=== PATIENT | male | born 1955 | race Caucasian/White ===

== ENCOUNTER 2019-09-15 10:18 | Inpatient (IN) ==
[2019-09-15] MEDS ORDERED: TORADOL IV ONE (10:40)
[2019-09-15] MEDS ORDERED: DECADRON IV ONE (10:40)
[2019-09-15] MEDS ORDERED: NS 500 ML IV ONE (10:40)
--- NOTE | 2019-09-15 11:31 | Diag Imaging Result Doc PS360 ---
CHEST-PORTABLE - 09/15/2019 INDICATION: altered mental status COMPARISON: None FINDINGS: Lung volumes are relatively low. No infiltrates or edema. Heart size is top normal. No pneumothorax or pleural effusion. IMPRESSION: Low lung volumes but no acute disease. Electronically signed by Tonny Fountain 09/15/2019 11:29 AM
--- NOTE | 2019-09-15 11:37 | Diag Imaging Result Doc PS360 ---
EXAM: CT HEAD W/O CONTRAST HISTORY: altered mental status TECHNIQUE: CT head without contrast COMPARISON: None. FINDINGS: No parenchymal hemorrhage. No epidural or subdural hematoma. No subarachnoid hemorrhage. There is a hypodense area in the left occipital lobe extending into the posterior temporal lobe. No mass identified on this noncontrasted exam. No hydrocephalus. No sinus opacification. IMPRESSION: Recent left-sided infarct. This report was discussed with Chandrakant the charge nurse in the [facility] emergency room on 09/15/2019 at 11:35 AM and was readback. This exam was performed using automated exposure control, adjustment of mA or kV according to patient size, and/or use of iterative reconstruction technique. Electronically signed by Nick Manuel 09/15/2019 11:35 AM
[2019-09-15 11:52] LABS: INFLUENZA A NEGATIVE (NEGATIVE); INFLUENZA B NEGATIVE (NEGATIVE)
[2019-09-15 11:52] LABS: BASO# 0.01 X1000 (0.0-0.2); BASO% 0.1 % (0.0-0.8); EOS# 0.01 X1000 (0.0-0.7); EOS% 0.1 % (0.0-10.0); HEMATOCRIT 42.3 % (42.0-52.0); HEMOGLOBIN 14.4 g/dL (14.0-18.0); IMM GRAN# 0.02 X1000 (0.0-0.04); IMM GRAN% 0.2 % (0.0-0.5); LYMPH# 0.82 X1000 (1.2-3.4); LYMPH% 9.6 % (20.5-51.1); MCV 88.1 FL (81-99); MONO# 0.47 X1000 (0.11-0.59); MONO% 5.5 % (1.7-9.3); MPV 9.7 FL (7.4-10.4); NEUT# 7.19 X1000 (1.4-6.5); NEUT% 84.5 % (42.2-75.2); PLT 201 X1000 (130-400); WBC 8.52 X1000 (4.8-10.8)
[2019-09-15] MEDS ORDERED: PRINIVIL PO ONE (11:52)
[2019-09-15] MEDS ORDERED: PRINIVIL ONE (12:05)
--- NOTE | 2019-09-15 12:18 | PROVIDER DOCUMENTATION ---
This chart was entered by Francesca Ramos Scribbre, acting as scribe for Belinda Byers MD. HPI-Neurological Disorder - General Chief Complaint: Altered Mental Status Stated Complaint: CONFUSED / HEADACHE Time Seen by Provider: 09/15/19 10:31 Source: patient, family () Allergies/Adverse Reactions: Patient Allergies Allergy/AdvReac Type Severity Reaction Status Date / Time No Known Allergies Allergy Verified 09/15/19 11:48 Home Medications: Home Medication List Medication Instructions Recorded Confirmed Last Taken Type Levothyroxine [Synthroid] 1 tab PO DAILY 09/15/19 09/15/19 09/14/19 History Lisinopril 1 tab PO DAILY 09/15/19 09/15/19 09/14/19 History Metformin [Glucophage] 2 tab PO BID 09/15/19 09/15/19 09/14/19 History - History of Present Illness-Neuro Nature of Presenting Problem: Pt is a 64 yowm brought into the ED by his with c/o of confusion, headache and "weird feeling" that comes and goes. Pt's states that pt woke up just not feeling right but denies head injury, chest pain and SOB. Pt has a hx of diabetes, HTN and does not have his thyroid. Pt is alert and nontoxic in appearance. Headache Location: reports: global Severity: reports: mild Onset/Duration: reports: abrupt, this morning Timing: reports: still present, intermittent Context: denies: head injury, fever, impaired speech, facial droop, falling, seizure activity Character of Altered Mental Status: reports: confused, decreased responsiveness Any recent trauma/injury?: reports: none Gait Baseline: walks without assistance Associated Symptoms: reports: headache, confusion. denies: short of breath, dizziness, chest pain, fever/chills, loss of consciousness, nausea, slurred speech, vomiting, vision changes, weakness Similar Symptoms Previously?: No Recently seen or treated by another doctor?: No Review of Systems - Adult - REVIEW OF SYSTEMS - ADULT Constitutional: denies: chills, fever Eyes: reports: no symptoms reported Ears, Nose, Mouth & Throat: reports: no symptoms reported Cardiovascular: denies: chest pain, syncope Respiratory: denies: cough, shortness of breath Gastrointestinal: denies: abdominal pain, diarrhea, nausea, vomiting Genitourinary: reports: no symptoms reported Musculoskeletal: reports: no symptoms reported Integumentary: reports: no symptoms reported Neurological: reports: see HPI, headache/migraines, other (confusion) Psychiatric: reports: no symptoms reported Endocrine: reports: no symptoms reported Hematologic/Lymphatic: reports: no symptoms reported Allergic/Immunologic: reports: no symptoms reported All Other Systems: Reviewed and Negative Past History - Adult - PAST MEDICAL HISTORY-ADULT Review of Records: reports: Old Records Reviewed, Nursing Assessment Review, Medications Reviewed, Social history reviewed & non-contributory. Major Childhood Illnesses: reports: denies history Cardiovascular: reports: HTN Respiratory: reports: denies history Gastrointestinal: reports: denies history Genitourinary: reports: denies history Musculoskeletal: reports: denies history Neurological: reports: denies history Endocrine/Immune: reports: Diabetes, thyroid disorder (pt does not have a thyroid) Other Conditions: reports: denies history - IMMUNIZATION STATUS Childhood Immunizations: See Nurse Assessment Flu Vaccine: See Nurse Assessment - FAMILY HISTORY Family History: reviewed, not pertinent - SOCIAL HISTORY Smoking: non-smoker Substance Use: denies Living Situation: family () Physical Exam- Neurological - Physical Exam-Neuro Initial Vital Signs Reviewed: Yes General Appearance: appears well, alert, no apparent distress Eye Exam: bilateral eye: normal inspection, PERRL, EOMI HENMT: normocephalic/atraumatic, moist mucous membranes, normal ENT inspection, TMs normal, pharynx normal Head Injury: no evidence of injury Neck: non-tender, full range of motion, supple, normal inspection Respiratory: chest non-tender, lungs clear, normal breath sounds, no pleuratic chest pain, no respiratory distress, no accessory muscle use Cardiovascular: normal peripheral pulses, regular rate, rhythm, no edema, no gallop, no JVD, no murmur Abdominal Exam: normal bowel sounds, non tender, soft, no organomegaly, no pulsatile mass Lymphatic: no adenopathy Extremity: normal range of motion, non-tender, normal gait, normal inspection, no pedal edema, no calf tenderness 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 Exam: normal hearing, normal speech, PERRL Coordination/Gait: normal gait Motor/Sensory: no motor deficit, no sensory deficit, no pronator drift Integumentary: normal color, normal turgor, warm/dry Psych/Mental Status: normal thought content, normal thought process, oriented x 3, depressed affect - Glascow Coma Scale Best Eye Response: (4) open spontaneously Best Verbal Response: (5) oriented Best Motor Response: (6) obeys commands Total Glascow Score: 15 Progress - PLAN OF CARE/RESULTS Progress/Plan/Lab Results: Vital Signs - 8 hr 09/15/19 10:26 09/15/19 12:12 Temperature 97.9 F Pulse Rate 77 73 Respiratory Rate 18 14 Blood Pressure 208/102 199/89 O2 Sat by Pulse Oximetry 96 98 Laboratory Results - last 24 hr 09/15/19 09/15/19 11:05 11:40 WBC 8.52 RBC 4.80 Hgb 14.4 Hct 42.3 MCV 88.1 MCH 30.0 MCHC 34.0 RDW Std Deviation 13.0 Plt Count 201 MPV 9.7 Immature Gran % (Auto) 0.2 Neut % (Auto) 84.5 H Lymph % (Auto) 9.6 L Dougherty % (Auto) 5.5 Eos % (Auto) 0.1 Baso % (Auto) 0.1 Immature Gran # (Auto) 0.02 Neut # (Auto) 7.19 H Lymph # (Auto) 0.82 L Dougherty # (Auto) 0.47 Eos # (Auto) 0.01 Baso # (Auto) 0.01 Influenza A (Rapid) NEGATIVE Influenza B (Rapid) NEGATIVE Orders Category Date Time Status Saline Loc NOW Care 09/15/19 10:39 Active CHEST-PORTABLE [RAD] Stat Exams 09/15/19 10:[address] HEAD W/O CONTRAST [CT] Stat Exams 09/15/19 10:38 Completed CBC WITH DIFF [HEME] Stat Lab 09/15/19 11:40 Completed COMPREHENSIVE METABOLIC PANEL [CHEM] Stat Lab 09/15/19 11:[address] Stat Lab 09/15/19 11:05 Completed URINALYSIS [URINALYSIS] Stat Lab 09/15/19 10:39 Uncollected 0.9% Sodium Chloride Inj [Ns] 500 ml Med 09/15/19 10:40 Discontinued IV 999 mls/hr Dexamethasone [Decadron] Med 09/15/19 10:40 Discontinued 10 mg IV NOW ONE Ketorolac [Toradol] Med 09/15/19 10:40 Discontinued 30 mg IV NOW ONE LISINOpril [Prinivil] Med 09/15/19 11:52 Discontinued 5 mg PO NOW ONE LISINOpril [Prinivil] Med 09/15/19 12:05 Discontinued 50 mg .ROUTE .STK-MED ONE EKG [EKG] Stat Ther 09/15/19 10:31 Ordered Result Diagrams: 09/15/19 11:40 - EKG 1 Time of EKG reading by physician:: 10:33 EKG Read and Signed by:: Belinda Byers EKG Interpretation (*Must complete 3 of following elements*): Abnormal (Poor data quality, interpretation may be adversely affected) Rate: 76 Rhythm: NSR [place]: normal Comments: T wave abnormalityl, consider lateral ischemia - XRAY 1 XRAY Study: Chest Impression: See EMR Report (CHEST-PORTABLE - 09/15/2019 INDICATION: altered mental status COMPARISON: None FINDINGS: Lung volumes are relatively low. No infiltrates or edema. Heart size is top normal. No pneumothorax or pleural effusion. IMPRESSION: Low lung volumes but no acute disease. Electronically signed by Tonny Fountain 09/15/2019 11:29 AM 09/15/19 1129 Interpreting Physician: Tonny Fountain MD Dictated Date/Time: 09/15/19 1128 cc: Belinda Byers MD; Homer Yuan) - CT/MRI 1 CT Study: Head Impression: See EMR Report (EXAM: CT HEAD W/O CONTRAST HISTORY: altered mental status TECHNIQUE: CT head without contrast COMPARISON: None. FINDINGS: No parenchymal hemorrhage. No epidural or subdural hematoma. No subarachnoid hemorrhage. There is a hypodense area in the left occipital lobe extending into the posterior temporal lobe. No mass identified on this noncontrasted exam. No hydrocephalus. No sinus opacification. IMPRESSION: Recent left-sided infarct. This report was discussed with Chandrakant the charge nurse in the [facility] emergency room on 09/15/2019 at 11:35 AM and was readback. This exam was performed using automated exposure control, adjustment of mA or kV according to patient size, and/or use of iterative reconstruction technique. Electronically signed by Nick Manuel 09/15/2019 11:35 AM 09/15/19 1135 Interpreting Physician: Nick Manuel MD Dictated Date/Time: 09/15/19 1132) - CONSULTS/PCP/HOSPITALIST Notification #1 *Consult/PCP/Hospitalist*: Dr Finnegan Time Discussed: 12:19 Consult Disposition: Will see in ED, Admit Departure - Departure Date of Disposition Decision: 09/15/19 Time of Disposition Decision: 12:14 DIAGNOSIS: CVA (cerebral vascular accident) Qualifiers: CVA mechanism: unspecified Qualified Code(s): I63.9 - Cerebral infarction, unsp ecified Disposition: ADMITTED INPATIENT 09 Certified Medical Emergency: Emergent Condition: Good Referrals and Follow-Ups: Homer Yuan [Primary Care Provider] - - Critical Care Note This patient required my direct & personal management of CC.: No Attestation - Physician/ LILLIE Attestation Patient care was provided by Advanced Practice Provider:: No The physician spent face to face time with patient:: Yes Advanced Practice Provider documentation review:: Supervising physician onsite and consulted in the evaluation and care of this patient. The physician did have a face to face encounter with the patient. - NIH Stroke Scale Level of Consciousness: 0-Alert LOC Questions (ask month and age): 0-Answers Both Correctly Best Gaze (horizontal eye movement): 0-Normal Visual (use finger movement, counting or visual threat): 0-No Visual Loss Facial Palsy (show teeth or raise eyebrows & close eyes tght: 0-Symmetrical Movement Motor Function-left arm: 0-Normal Motor Function-right arm: 0-Normal Motor Function-left le-Normal Motor Function-right le-Normal Limb Ataxia(itcltu-ioqg-splobc, or heel to barnes): 0-No Ataxia Sensory(pin prick to face,arms,trunk,legs-compare side/side): 0-No Ataxia Best Language(name item/read sentence.Ex-Down to Earth): 0-No Aphasia Dysarthria(Pt read words or say words Ex.Mama,Tip-Top,Thanks: 0-Normal Articulation This chart was documented by the indicated scribe, (Francesca Ramos, Andra) and accurately reflects the services I performed and decisions made by me, Belinda Byers MD, as attested by the provider's signature.
[2019-09-15 12:30] LABS: ALBUMIN 4.4 g/dL (3.5-5.0); CALCIUM 8.4 mg/dL (8.8-10.2); CREATININE 1.8 mg/dL (0.7-1.2); POTASSIUM 4.4 mmol/L (3.5-5.1); TOTAL BILIRUBIN 0.6 mg/dL (0.20-1.00)
--- NOTE | 2019-09-15 12:40 | EKG Report ---
Test Performed on : 09/15/2019 10:33:54 AM Test Reason : altered mental status Blood Pressure : / mmHG Vent. Rate : 076 BPM Atrial Rate : 076 BPM P-R Int : 164 ms QRS Dur : 098 ms QT Int : 404 ms P-R-T Axes : 019 -20 115 degrees QTc Int : 454 ms Poor data quality, interpretation may be adversely affected Normal sinus rhythm. T wave abnormality, consider lateral ischemia Abnormal ECG No previous ECGs available Unconfirmed Result
[2019-09-15 13:29] LABS: URINE SOURCE CLEAN CATCH
[2019-09-15 13:32] LABS: BILIRUBIN URINE NEGATIVE (NEGATIVE); BLOOD URINE NEGATIVE (NEGATIVE); COLOR YELLOW; GLUCOSE URINE 200 mg/dL (NEGATIVE); KETONE URINE TRACE mg/dL (NEGATIVE); LEUKOCYTES URINE NEGATIVE (NEGATIVE); NITRITE URINE NEGATIVE (NEGATIVE); PROTEIN URINE 30 mg/dL (NEGATIVE); SP GRAVITY URINE 1.016; TURBIDITY URINE CLEAR (CLEAR); UROBILINOGEN URINE NORMAL (NORMAL)
[2019-09-15] MEDS: SYNTHROID PO SCH (13:33)
[2019-09-15 13:34] LABS: UR EPITHELIAL CELLS <10 /HPF (<10); URINE BACTERIA NEGATIVE /HPF; URINE RBC <10 /HPF (<10); URINE WBC <10 /HPF (<10)
[2019-09-15] MEDS ORDERED: GLUCOPHAGE PO SCH (17:00)
--- NOTE | 2019-09-15 17:11 | Vascular Study Report ---
EXAM: Carotid Ultrasound INDICATION: cva TECHNIQUE: COMPARISON: None. FINDINGS: Right: There is no significant atherosclerotic disease involving the right carotid system on grayscale images. The peak systolic velocity measures 224, 26, 78, 80, 46, 53, and 72 cm/s at the right subclavian artery, CCA, bifurcation, proximal ICA, mid ICA, distal ICA, and ECA, respectively. There is antegrade flow in the vertebral artery. The carotid ratio is 0.63. Left: There is mild intimal thickening involving the proximal CCA. There is a small amount of smooth atherosclerotic plaque at the carotid bulb. The peak systolic velocity measures 106, 115, 84, 58, 47, 58, and 57 cm/s at the left subclavian artery, CCA, bifurcation, proximal ICA, mid ICA, distal ICA, and ECA, respectively. There is antegrade flow in the vertebral artery. The carotid ratio is 0.51. IMPRESSION: Mild atherosclerotic disease on the left. No evidence of hemodynamically significant carotid stenosis by Doppler. Electronically signed by Bartolo Giordano 09/15/2019 5:09 PM
--- NOTE | 2019-09-15 18:02 | ECHO REPORT ---
ORDER DATE: 09/15/2019 INTERPRETING PHYSICIAN: Dr. Joe Seals. ECHOCARDIOGRAPHIC MEASUREMENTS: 1. Interventricular septum: 1.2 cm. 2. Left ventricular posterior wall: 1.4 cm. 3. Diastolic diameter: 5.2 cm. 4. Left atrium: 4.6 cm. 5. Aorta: 3.9 cm. SUMMARY OF THE 2-DIMENSIONAL IMAGIN. Aortic valve leaflets were trileaflet. 2. Pulmonic valve was normal. 3. Mitral valve was normal. 4. Tricuspid valve was normal. 5. Endocardium not well visualized in all views. 6. Peak velocity across the aortic valve less than 2 meters per second. 7. There is no aortic stenosis or regurgitation. 8. Left atrium was enlarged. 9. Optison was used to assess left ventricular systolic function. 10. Normal left ventricular cavity size. 11. Concentric left ventricular hypertrophy. 12. Estimated ejection fraction of 60%. 13. There is grade 2 diastolic dysfunction. 14. There is no pericardial effusion or obvious intracardiac mass or thrombus seen. 15. Technically suboptimal study. cc: MD Iker Bhakta MD
[2019-09-15] MEDS: APRESOLINE IV PRN (18:49)
[2019-09-15] MEDS ORDERED: ATIVAN IV PRN (19:42)
[2019-09-15] MEDS: HUMALOG (PARKWAY) SUBQ SCH (21:36)
[2019-09-16] MEDS: APRESOLINE IV PRN (00:08)
[2019-09-16] MEDS: SYNTHROID PO SCH (06:24)
--- NOTE | 2019-09-16 06:30 | HISTORY AND PHYSICAL ---
CHIEF COMPLAINT: Altered mental status. HISTORY OF PRESENT ILLNESS: The patient is a 64-year-old male who presented to the emergency department with his complaining of him having confusion. Notes that he has been having headache, a weird feeling. He has been disoriented. states that he woke up and was not feeling well. Has not had any head injury. Denies chest pain, shortness of breath. ALLERGIES: No known drug allergies. MEDICATIONS: Synthroid, lisinopril, metformin. PAST MEDICAL HISTORY: Diabetes, hypertension and hypothyroidism. PAST SURGICAL HISTORY: Thyroid surgery. REVIEW OF SYSTEMS: As noted above. His denies any knowledge of fevers, chills, cough, congestion. Denies any knowledge of dysuria frequency. He has had no focal changes other than his memory. Review of systems as per the as Mr. Goode is easily confused. FAMILY HISTORY: Noncontributory. SOCIAL HISTORY: Does not smoke, drink or use illicit substances. PHYSICAL EXAMINATION: VITAL SIGNS: Temperature 97 degrees, pulse 77, respiratory rate 18, blood pressure initially 202/102. HEENT: Normocephalic. NECK: Supple. CARDIOVASCULAR: Regular rate. CHEST: Clear, nonlabored. ABDOMEN: Soft, nondistended. EXTREMITIES: Moves all extremities. NEUROLOGIC: The patient is awake, alert. He is oriented, has normal thought processes, but is unable have long-term recall. His constantly notes that what he is saying is inaccurate. LABORATORY DATA: Reviewed. ASSESSMENT: 1. Acute cerebrovascular accident given memory loss versus acute amnesia. 2. Malignant hypertension. 3. Diabetes. 4. Hypothyroidism. PLAN: We are going to place the patient in the hospital, rule out a stroke. Check carotids, MRIs. Control his blood pressure. Follow his blood sugars. Further orders as needed. cc: Iker Finnegan MD
[2019-09-16] MEDS: HUMALOG (PARKWAY) SUBQ SCH ×4 (06:42→21:57)
[2019-09-16 07:04] LABS: HEMOGLOBIN A1C 7.4 % (4.8-6.0)
[2019-09-16 07:05] LABS: CALCIUM 8.3 mg/dL (8.8-10.2); CREATININE 1.8 mg/dL (0.7-1.2); MAGNESIUM 1.8 mg/dL (1.5-2.7); TOTAL BILIRUBIN 0.5 mg/dL (0.20-1.00); TOTAL PROTEIN 6.5 g/dL (6.3-8.3)
[2019-09-16 07:13] LABS: HEMATOCRIT 40.2 % (42.0-52.0); HEMOGLOBIN 13.7 g/dL (14.0-18.0); MCH 29.7 PG (27-31); MCHC 34.1 g/dL (33-37); MPV 10.1 FL (7.4-10.4); RBC 4.62 XMIL (4.7-6.1); RDW 12.9 % (11.5-14.5); WBC 10.62 X1000 (4.8-10.8)
[2019-09-16] MEDS ORDERED: ZOFRAN IV PRN (08:17)
[2019-09-16] MEDS ORDERED: TYLENOL PO PRN (08:17)
--- NOTE | 2019-09-16 08:24 | EKG Report ---
Test Performed on : 09/16/2019 04:50:07 AM Test Reason : Tachycardia Blood Pressure : / mmHG Vent. Rate : 084 BPM Atrial Rate : 084 BPM P-R Int : 170 ms QRS Dur : 100 ms QT Int : 402 ms P-R-T Axes : 034 -06 139 degrees QTc Int : 475 ms Normal sinus rhythm. T wave abnormality, consider lateral ischemia Prolonged QT Abnormal ECG When compared with ECG of 15-SEP-2019 10:33, (Unconfirmed) No significant change was found Unconfirmed Result
[2019-09-16] MEDS: JANUVIA PO SCH (08:34)
[2019-09-16] MEDS ORDERED: PRINIVIL PO SCH ×2 (09:00)
--- NOTE | 2019-09-16 12:09 | Diag Imaging Result Doc PS360 ---
EXAM: MRI BRAIN W/WO CONTRAST - 09/16/2019 HISTORY: memory loss, acutely TECHNIQUE: MRI brain without and with contrast. Images are obtained prior to and following gadolinium administration. COMPARISON: 09/15/2019 CT head without contrast FINDINGS: There is restricted diffusion which extends from the occipital lobe to the nearby posterior medial temporal lobe on the left. This corresponds with a low-density area which is seen on the recent CT head and is compatible with acute infarct. There is restricted diffusion the nearby left thalamus which also is consistent with acute infarct. There is no evidence of intracranial hemorrhage, mass effect, midline shift, or hydrocephalus. There is no abnormal enhancement identified. There is mucosal thickening noted at the bilateral maxillary sinuses. IMPRESSION: Acute infarct involving the occipital lobe, posterior medial temporal lobe, and thalamus on the left. Electronically signed by Derrick Baker 09/16/2019 12:07 PM
[2019-09-16] MEDS ORDERED: NS 1,000 ML IV SCH (21:00)
[2019-09-16] MEDS: DECADRON IV SCH (21:03)
--- NOTE | 2019-09-16 21:38 | PROGRESS NOTE ---
DATE: 09/16/2019 SUBJECTIVE: Patient notes he has a mild headache. He has occasional blurry vision. Denies any fevers, chills. Memory really has not improved. OBJECTIVE: Vital signs: Temperature 98 degrees, pulse 80, BP is better at 154/84 than his admission at 207/62. General: Patient is pleasant. He is in no distress. HEENT: Normocephalic. Neck: Supple. Cardiovascular: Regular rate. Chest: Clear. Abdomen: Soft. Extremities: Moves all extremities. ASSESSMENT: 1. Diabetes with poor home control an A1c of 7.4. We have added Januvia. We will stop his metformin due to his creatinine. 2. Acute renal failure. Creatinine is 1.8. We are going to try a fluid bolus to see if this helps. 3. Diabetes. 4. Hypothyroidism. 5. Acute cerebrovascular accident. We are going to try dexamethasone short course to see if this will help some of the edema and hopefully his vision change. cc: Iker Finnegan MD
[2019-09-17 05:57] VITALS: BP 160/73
[2019-09-17] MEDS: SYNTHROID PO SCH (06:05)
[2019-09-17] MEDS: HUMALOG (PARKWAY) SUBQ SCH ×2 (06:06→11:52)
[2019-09-17 06:15] LABS: HEMATOCRIT 41.1 % (42.0-52.0); HEMOGLOBIN 13.8 g/dL (14.0-18.0); MCH 29.7 PG (27-31); MCHC 33.6 g/dL (33-37); MCV 88.4 FL (81-99); MPV 9.9 FL (7.4-10.4); RBC 4.65 XMIL (4.7-6.1); RDW 13.2 % (11.5-14.5); WBC 9.78 X1000 (4.8-10.8)
[2019-09-17 06:17] LABS: AGAP 14; ALBUMIN 4.1 g/dL (3.5-5.0); ALKALINE PHOSPHATASE 69 U/L (32-122); BUN 31 mg/dL (8-22); CALCIUM 8.1 mg/dL (8.8-10.2); CHLORIDE 104 mmol/L (98-107); CHOLESTEROL 212 mg/dL (0-200); COSMO 288; CREATININE 1.8 mg/dL (0.7-1.2); ESTIMATED GFR 38; GLUCOSE 235 mg/dL (70-104); GOT 12 U/L (10-34); GPT 9 U/L (10-44); HDL 45 mg/dL (35-55); LDL 147 mg/dL; MAGNESIUM 1.9 mg/dL (1.5-2.7); POTASSIUM 4.3 mmol/L (3.5-5.1); SODIUM 137 mmol/L (136-145); TCO2 19 mmol/L (25-35); TOTAL PROTEIN 6.8 g/dL (6.3-8.3); TRIGLYCERIDES 102 mg/dL (39-160); VLDL 20 mg/dL
[2019-09-17] MEDS: JANUVIA PO SCH (08:31)
[2019-09-17] MEDS ORDERED: PRINIVIL PO SCH (09:00)
[2019-09-17] MEDS: DECADRON IV SCH (09:13)
--- NOTE | 2019-09-17 13:26 | DISCHARGE SUMMARY ---
ADMISSION DATE: 09/15/2019 DISCHARGE DATE: 09/17/2019 PRIMARY PROCEDURES: 1. Head CT. Recent left-sided infarct. 2. Chest x-ray, low lung volumes, but no acute disease. 3. Carotid Dopplers mild atherosclerotic disease on the left. No evidence of hemodynamically significant carotid Dopplers. 4. EKG, normal sinus rhythm, T-wave abnormality, prolonged QT 84 beats per minute. 5. Brain MRI, acute infarct involving the occipital lobe, posterior, medial temporal lobe and the thalamus on the left. DISCHARGE DIAGNOSES: 1. Acute infarct involving the occipital, posterior, medial temporal lobes and thalamus on the left. His main complaint was some confusion and memory loss. Really no physical deficits. He had a mild headache and some blurry vision for which he was given a dose of steroids. 2. Initially thought from acute renal failure. However, after IV fluids and boluses, he has had no recovery in his kidney function at 1.8, so apparently chronic kidney disease. 3. Uncontrolled diabetes mellitus with poor home control. Hemoglobin A1c of 7.4. Januvia was added. His metformin was stopped secondary to his creatinine. 4. Hypothyroidism. Continue Synthroid. 5. Initial malignant hypertension, improved. HOSPITAL COURSE: Briefly, Mr. Goode was a 64-year-old male gentleman who presented to the ED with his complaining of confusion, headache, feeling weird, disoriented and some blurry vision. stated that he woke up, was not feeling well. Denies any head injury. Workup revealed an acute infarct involving the occipital lobe, posterior medial temporal lobe and thalamus on the left. He has no physical deficits only memory. Dr. Finnegan and [facility] have talked to the patient and his about rehab or [facility] consult. However, they are currently not interested, but they are interested in home health and we recommend them to follow up with neurologist for memory loss and to follow up with his primary care provider, Dr. Homer Yuan. VITAL SIGNS: At time of his discharge temperature is 98.2 degrees, heart rate 74, respirations 18, blood pressure 160/73, O2 is 99% on room air. DISCHARGE DIET: Diabetic. DISCHARGE MEDICATIONS: 1. Synthroid 150 mcg p.o. daily. 2. Lipitor 40 mg p.o. at bedtime. 3. Januvia 100 mg p.o. daily. 4. Prinivil 40 mg p.o. daily. FOLLOWUP: Mr. Goode is being discharged back home with his and home health. He has been educated to keep a tight control on his blood glucoses as well as his cholesterol and high blood pressure. He will need to follow closely with his primary care physician, Dr. Homer Yuan. We do encourage him to follow up with a neurologist of his choosing giving his memory loss for some cognitive rehabilitation. He can return to the ED or call 911 for any worsening of symptoms. Dictated by YUE Valentine for Iker Finnegan MD cc: MD Homer Calderon MD
[2019-09-17] MEDS ORDERED: LIPITOR PO SCH (21:00)
--- NOTE | 2019-09-18 10:22 | DISCHARGE SUMMARY ---
ADMISSION DATE: 09/15/2019 DISCHARGE DATE: 09/17/2019 HOSPITAL COURSE: Patient unfortunately suffered a stroke. As noted on his MRI, he is having some memory issues, although no other focal deficits. His A1c is 7.4 and his LDL is 147. Blood pressures were elevated to 207 initially; currently they are improving, and his creatinine is 1.8. We have stopped his metformin, added Januvia, increased his lisinopril to 20, and discussed with him the importance of controlling his cholesterol. We will discharge him home. He will follow up outpatient with Neurology, as well as his primary care. cc: kIer Finnegan MD
== END 2019-09-17 11:55 | disposition home health service (06) | DRG 66 ==
LOC: P.ED 10:18 → P.MEDSURG 14:14
PROVIDERS: ATTEND Family Medicine